=== PATIENT | male | born 1950 | race Two or more races ===

== ENCOUNTER 2017-02-05 16:28 | Emergency (ER) | payer OTHER ==
[~2017-02-05] VITALS: Ht 172.7 cm; Wt 105.0 kg
[2017-02-05 16:33] VITALS: BP 141/52
[2017-02-05 17:14] LABS: HEMATOCRIT 41.4 % (39.2-51.8); HEMOGLOBIN 13.6 g/dL (13.7-18.0); WHITE BLOOD COUNT 7.2 x10^3/uL (3.4-10)
[2017-02-05 17:17] LABS: ASPARTATE AMINO TRANSFERASE 21 U/L (15-37); BLOOD UREA NITROGEN 18 mg/dL (7-18)
[2017-02-05 17:23] LABS: IS PT STATUS REG ER OR PRE ER? YES
[2017-02-05] MEDS ORDERED: SODIUM CHLORIDE FLUSH 10ML SYR IVF ONE (18:00)
== END 2017-02-05 19:52 | disposition home or self-care (01) ==
LOC: ED 19:15
DX: I49.3 Ventricular premature depolarization (principal)
CPT/HCPCS: 36415; 71010; 80053; 84484; 85025; 85610; 85730; 93005; 99285